=== PATIENT | male | born 1945 | race Caucasian/White ===

== ENCOUNTER → 2020-05-11 07:53 | Outpatient (BNVA) | payer MEDICARE, BC, SELFPAY | PROVIDERS: Family Provider Electrodiagnostic Medicine; PCP Electrodiagnostic Medicine; Visit Provider Urology | DX: N39.0 Urinary tract infection, site not specified (principal); Z12.5 Encounter for screening for malignant neoplasm of prostate; N40.1 Benign prostatic hyperplasia with lower urinary tract symptoms | CPT/HCPCS: 81001 ==

== ENCOUNTER → 2021-09-11 10:41 | Outpatient (BNVA) | payer MEDICARE, BC, SELFPAY | PROVIDERS: Family Provider Electrodiagnostic Medicine; PCP Electrodiagnostic Medicine; Visit Provider Nurse Practitioner Family | DX: N40.1 Benign prostatic hyperplasia with lower urinary tract symptoms (principal) | CPT/HCPCS: 81003 ==

== ENCOUNTER 2022-05-22 13:00 | Outpatient (CLI) | payer MEDICARE, BC, SELFPAY ==
[2022-05-22 14:08] LABS: Prostate Specific AG Urology 1.95 ng/mL (0-4)
== END 2022-05-22 13:01 | disposition home or self-care (01) ==
LOC: LAB 13:01
PROVIDERS: PCP Electrodiagnostic Medicine; Visit Provider Urology
DX: N40.1 Benign prostatic hyperplasia with lower urinary tract symptoms (principal); N39.0 Urinary tract infection, site not specified; N52.9 Male erectile dysfunction, unspecified; Z80.42 Family history of malignant neoplasm of prostate; Z12.5 Encounter for screening for malignant neoplasm of prostate
CPT/HCPCS: 36415; 81003; 84153; 99213

== ENCOUNTER → 2023-03-25 13:09 | Outpatient (BNVA) | payer MEDICARE, OTHER, SELFPAY | PROVIDERS: PCP Electrodiagnostic Medicine; Visit Provider Specialist | DX: M25.562 Pain in left knee (principal) | CPT/HCPCS: 73560; 73565; 99203 ==

== ENCOUNTER → 2024-02-05 08:39 | Outpatient (BNVA) | payer MEDICARE, OTHER, SELFPAY | PROVIDERS: PCP Electrodiagnostic Medicine; Visit Provider Specialist | DX: M17.11 Unilateral primary osteoarthritis, right knee; Z71.89 Other specified counseling | CPT/HCPCS: 20610; 73560; 73565; 99213; J1100; J2795; J3301 ==

== ENCOUNTER 2024-09-23 14:08 | Outpatient (CLI) | payer MEDICARE, OTHER, SELFPAY ==
--- NOTE | 2024-09-23 14:30 | MR_ITS ---
WS: [id number] MRI BRAIN/ORBITS WITH AND WITHOUT CONTRAST HISTORY: H47.10 - Unspecified papilledema COMPARISON: None available. TECHNIQUE: Multiplanar imaging performed through the brain with MultiHance 19 ml's IV. No acute infarcts are seen. Ordaz-white matter differentiation is well preserved. Very mild small vessel ischemic disease. No prior infarct. Mild cerebral and cerebellar atrophy. No susceptibility artifacts or prior lacunar infarcts. Ventricles and extra-axial spaces are normal. Clivus and pituitary gland are normal. No displacement of the optic chiasm or infundibulum. Visualized posterior fossa and brainstem are also normal. Symmetric appearance of the optic nerves. There is no CSF, enlargement or atrophy. No displacement or soft tissue mass. No enhancement. Postcontrast images are negative for masses or vascular malformations. Dural venous sinuses are normal. Paranasal sinuses: Moderate mucoperiosteal thickening surrounding the RIGHT maxillary sinus and mild on the LEFT. No air-fluid levels. Mastoid air cells: Normal. Calvarium and scalp: Normal. MR/MR head orbits wo/w* 25252/[id number] IMPRESSION: 1. No acute infarct or hemorrhage. 2. No evidence for optic neuritis. Normal appearance of the optic nerves. 3. No intracranial edema. No hydrocephalus. 4. Mild small vessel disease and mild atrophy. 5. Moderate mucoperiosteal sinus disease in the RIGHT maxillary sinus and mild on the LEFT.
== END 2024-09-23 14:09 | disposition home or self-care (01) ==
PROVIDERS: PCP Electrodiagnostic Medicine; Visit Provider Psychiatry & Neurology Neurology
DX: H47.10 Unspecified papilledema (principal); I67.89 Other cerebrovascular disease; G31.89 Other specified degenerative diseases of nervous system; J01.00 Acute maxillary sinusitis, unspecified
CPT/HCPCS: 70543; 70553

== ENCOUNTER 2024-09-29 08:44 | Outpatient (CLI) | payer MEDICARE, OTHER, SELFPAY ==
--- NOTE | 2024-09-29 09:15 | FL_ITS ---
WS: [id number] LUMBAR PUNCTURE CLINICAL INFORMATION: H47.10 - Unspecified papilledema TECHNIQUE: Informed consent: The procedure and its potential risk and complications were discussed with the patient. Verbal and written consent was obtained. Timeout: A timeout was performed to confirm correct patient, procedure, and site. Patient was prepped and draped in the usual sterile fashion. Lidocaine 1% was used for local anesthesia. Utilizing fluoroscopic guidance, a 3.5 inch 22-gauge spinal needle was advanced into the subarachnoid space at L3-L4 via LEFT oblique sublaminar approach. Free flow of clear CSF was obtained. 14 cc of CSF was collected and sent the lab for further analysis. FLUOROSCOPIC TIME: 0min [id number] # of spot films: 1 FL/FL guided lumbarpunc dx* [id number] IMPRESSION: 1. Fluoroscopically guided lumbar puncture. No immediate complications 2. Opening pressure 11 cmH2O 3. Closing pressure 9 cmH2O
[2024-09-29 10:55] LABS: Red Blood Cell CSF 0 10^3/uL (0-0); White Blood Cell CSF 0 /uL (0-5)
[2024-09-29 11:08] LABS: Glucose CSF 60 mg/dL (40-70); Total Protein CSF 25 mg/dL (15-45)
[2024-09-29 11:11] LABS: Appearance CSF CLEAR (CLEAR); Color CSF COLORLESS (COLORLESS)
== END 2024-09-29 08:45 | disposition home or self-care (01) ==
LOC: RAD 08:45
PROVIDERS: PCP Electrodiagnostic Medicine; Visit Provider Psychiatry & Neurology Neurology
DX: H47.10 Unspecified papilledema (principal)
CPT/HCPCS: 62328; 80503; 82945; 84157; 86382; 86403; 86592; 86777; 86778; 86788; 86789; 87015; 87070; 87075; 87116; 87205; 87206; 87327; 87496; 87798; 87799; 87801; 89050